=== PATIENT | female | born 1955 | race Hispanic/Latino ===

== ENCOUNTER → 2017-11-05 | Outpatient (CLI) | payer BC ==
[~2017-11-05] MED LIST: ASACOL HD800 MG PO; CELEBREX100 MG PO; DICYCLOMINE HCL10 MG PO; DILTIAZEM HCL60 MG PO; FAMOTIDINE20 MG PO; FOLIC ACID1 MG PO; METFORMIN HCL500 M2 PO; OMEPRAZOLE40 MG PO; ONDANSETRON HCL4 MG PO; PREDNISONE2.5 MG PO; SERTRALINE HCL50 MG PO; SIMVASTATIN40 MG PO; ZEBETA10 MG PO
--- NOTE | 2017-11-05 10:01 | Diagnostic Imaging Report ---
PROCEDURE:ABDOMINAL ULTRASOUND COMPARISON:CT abdomen and pelvis with contrast 08/21/2014. INDICATIONS:nausea FINDINGS: Liver: 14.4 cm in length in the right midclavicular line. Increased hepatic parenchymal echogenicity. No focal mass. No intrahepatic biliary dilatation. Main portal vein: 0.8 cm in caliber. Hepatopedal flow. Gallbladder: Surgically removed. Common Bile Duct: 0.4 cm in caliber. No echogenic filling defect. Right kidney: 11.7 cm in length. No solid mass or hydronephrosis. 5 mm calculus in the interpolar region as seen on comparison CT. Normal renal cortical echogenicity. Left kidney: 10.5 cm in length. No solid or cystic mass, echogenic calculi, or hydronephrosis. Normal renal cortical echogenicity. Spleen: 8.2 cm in length. Uniform parenchymal echotexture. Pancreas: The visualized portions of the pancreas are normal. Inferior vena cava: Patent. Aorta: Non-aneurysmal. Ascites: None. CONCLUSION: Hepatic steatosis. Nonobstructing right renal calculus. Dictated by: Eleazar Dawson M.D. on 11/05/2017 at 10:01 Electronically approved by: Eleazar Dawson M.D. on 11/05/2017 at 10:01
== END ==
LOC: US 08:42
PROVIDERS: ATTEND Internal Medicine Gastroenterology
DX: R11.0 Nausea (principal)
CPT/HCPCS: 76700

== ENCOUNTER → 2018-04-15 | Outpatient (CLI) | payer BC ==
[~2018-04-15] MED LIST changes: +IOPAMIDOL 370 MG/ML 200 ML INFUS..BTL INJ ONE; +SODIUM CHLORIDE 0.9% 50ML 50 ML ONE
[2018-04-15 15:50] LABS: BLOOD UREA NITROGEN 18 mg/dL (7-26); BUN/CREATININE RATIO 24 (6-25); CREATININE, SERUM 0.76 mg/dL (0.57-1.11); EST GLOMERULAR FILTRATION RATE > 60 ML/MIN (60-)
--- NOTE | 2018-04-15 17:27 | Diagnostic Imaging Report ---
PROCEDURE:CT ABDOMEN WOW COMPARISON:[facility], US, US ABDOMEN COMPLETE, 11/05/2017, 9:03. [facility], CT, CT ABDOMEN/PELVIS W, 08/21/2014, 18:03. INDICATIONS:ELEVATED LIPASE TECHNIQUE: Multidetector CT scanning of the abdomen was performed before and after the administration of 100 cc of nonionic contrast. Coronal and sagittal reformations were obtained. Pancreas protocol performed. DLP: 669.24 mGy-cm FINDINGS: Lung bases: Chronic atelectasis/scar in the right middle lobe and lingula. Visualized portion of the mediastinum is normal. Liver: Decreased attenuation consistent with steatosis. The right lobe measures 16 cm in length. No mass in the visualized portions. Main portal vein measures 1.5 cm in diameter and is widely patent. This is stable. Biliary: The gallbladder is absent. No biliary ductal dilatation. Spleen: Normal size and attenuation without mass. Pancreas: Morphology is stable. There are several areas of fat invagination. Mild fatty atrophy of the pancreas head and neck. No pancreas calcifications. No evidence of mass or ductal dilatation. Adrenal Glands: No mass. Kidneys: Right kidney: Calculus in the upper pole is stable measuring 3 mm. Scarring of the upper pole is stable. No evidence of enhancing mass. Low attenuating lesion on delayed series in the interpolar cortex measures 4 mm (previously, 12 mm). No filling defects in the collecting system or proximal ureter. There is an extrarenal pelvis. Left kidney: No evidence of calculus. No enhancing or low attenuating masses. Normal collecting systems. No intraluminal filling defects. Gastrointestinal: The stomach is normal. Small bowel and large bowel are normal in diameter with normal wall thickness. Vasculature: The aorta is normal in diameter and diffusely calcified. Celiac and hepatic arteries are normal in morphology. SMA is widely patent. Single arteries supply each kidney with calcifications at the origins. No varices. Peritoneum/Retroperitoneum: No free fluid or fluid collection. Lymph nodes: No enlarged abdominal or periaortic lymph nodes. Musculoskeletal: No destructive lesions. Soft tissues are unremarkable. CONCLUSION: 1. No CT findings of acute pancreatitis or complications of acute pancreatitis. Mild fatty atrophy of the pancreas parenchyma. No pancreas calcifications. 2. Hepatic steatosis. Enlarged portal vein suggesting portal hypertension. No change in size. No stigmata of portal hypertension. 3. The stomach and visualized portions of the small bowel and large bowel are unremarkable. 4. Stable right intrarenal calculus. Right extrarenal pelvis. No obstructive uropathy. Dictated by: Vishal Lin M.D. on 04/15/2018 at 17:32 Electronically approved by: Vishal Lin M.D. on 04/15/2018 at 17:32
== END ==
LOC: CT 13:58
PROVIDERS: ATTEND Internal Medicine Gastroenterology
DX: R74.8 Abnormal levels of other serum enzymes (principal)
CPT/HCPCS: 36415; 74170; 82565; 84520; Q9967